=== PATIENT | female | born 1960 | race African-American/Black ===

== ENCOUNTER 2017-02-28 16:30 | Emergency (ER) | payer SELFPAY ==
[2017-02-28] MEDS ORDERED: ALBUTEROL SO4 2.5/IPRATROPIUM 0.5 INH SOL 3 ML VIAL.NEB. NEB ONE ×5 (16:49→18:39)
--- NOTE | 2017-02-28 16:49 | PDOC ---
Rapid Medical Evaluation Time Seen by Provider: 02/28/17 16:45 Medical Evaluation: Allergies Allergy/AdvReac Type Severity Reaction Status Date / Time No Known Allergies Allergy Verified 04/26/14 14:19 02/28/17 16:46 I have performed a brief in-person evaluation of this patient. The patient presents with a chief complaint of: Asthma exacerbation since yesterday, not relieved w/ meds at home. Is a smoker. No asthma admissions or intubations Pertinent physical exam findings:Sating 96% on RA w/ HR of 117, BP 144/80 w/ mild wheezing on exam, able to speak in full sentences I have ordered the following:Romulo in triage The patient will proceed to the ED for further evaluation.
[2017-02-28 16:50] VITALS: BP 144/80; PULSE 112; TEMP 97.9; BMI 21.7
[2017-02-28] MEDS ORDERED: predniSONE 20 MG TABLET (UD) PO ONE (17:26)
[2017-02-28] MEDS ORDERED: predniSONE 20 MG TABLET (UD) ONE (17:28)
--- NOTE | 2017-02-28 17:34 | PDOC ---
History of Present Illness - General Chief Complaint: Shortness of Breath Stated Complaint: S.O.B/Asthma Time Seen by Provider: 02/28/17 16:45 History Source: Patient Exam Limitations: No Limitations - History of Present Illness Initial Comments: 02/28/17 17:28 56 yr female with c/o wheezing cough short of breath ran out of her albuterol at home. Pt is a smoker denies chest pain or fever. Pt has no history of intubations or hospitalizations. Pt has no other medical history. 02/28/17 17:29 Past History - Past Medical History Allergies/Adverse Reactions: Allergies Allergy/AdvReac Type Severity Reaction Status Date / Time No Known Allergies Allergy Verified 02/28/17 16:50 Home Medications: Ambulatory Orders Albuterol 2.5/Ipratropium 0.5 [Duoneb -] 1 neb NEB Q4H #30 vial 02/28/17 Albuterol Sulfate Inhaler - [Ventolin HFA Inhaler -] 1 - 2 inh PO Q4H #1 inhaler 02/28/17 Azithromycin [Zithromax 250mg Tablets -] 250 mg PO UTDICT #6 tab 02/28/17 Prednisone [Deltasone -] 40 mg PO DAILY #10 tablet 02/28/17 Asthma: Yes COPD: No Other medical history: Aneurysm - Suicide/Smoking/Psychosocial Hx Smoking Status: Yes Smoking History: Current every day smoker Number of Cigarettes Smoked Daily: 20 Information on smoking cessation initiated: Yes 'Breaking Loose' booklet given: 02/28/17 Hx Alcohol Use: No Drug/Substance Use Hx: No Substance Use Type: None Review of Systems - Review of Systems Able to Perform ROS?: Yes Is the patient limited Slovenian proficient: No Constitutional: No: Symptoms Reported HEENTM: Yes: Symptoms Reported Respiratory: Yes: Cough, Wheezing Cardiac (ROS): No: Symptoms Reported ABD/GI: No: Symptoms Reported : No: Symptoms Reported Musculoskeletal: No: Symptoms Reported Integumentary: No: Symptoms Reported Neurological: No: Symptoms reported *Physical Exam - Vital Signs Last Vital Signs Temp Pulse Resp BP Pulse Ox 97.9 F 112 H 19 144/80 97 02/28/17 16:48 02/28/17 16:48 02/28/17 16:48 02/28/17 16:48 02/28/17 16:48 - Physical Exam General Appearance: Yes: Nourished, Appropriately Dressed HEENT: positive: EOMI, CESILIA, TMs Normal, Pharynx Normal Neck: positive: Supple. negative: Tender Respiratory/Chest: positive: Decreased Breath Sounds, Wheezing Cardiovascular: positive: Regular Rhythm, Regular Rate Gastrointestinal/Abdominal: positive: Normal Bowel Sounds, Soft Musculoskeletal: positive: Normal Inspection Extremity: positive: Normal Capillary Refill, Normal Inspection, Normal Range of Motion Integumentary: positive: Normal Color, Dry, Warm Neurologic: positive: Fully Oriented, Alert, Normal Mood/Affect, Normal Response , Motor Strength 08/16 ED Treatment Course - Medications Given in the ED: ED Medications Discontinued Medications Generic Name Dose Route Start Last Admin Trade Name Freq PRN Reason Stop Dose Admin Albuterol/Ipratropium 1 amp 02/28/17 16:49 02/28/17 16:57 Duoneb - NEB 02/28/17 16:50 1 amp ONCE ONE Administration Medical Decision Making - Medical Decision Making 02/28/17 17:31 cc: cough wheezing SOB speaking full sentences no acute distress duoneb given in triage, pt feels some relief when she presented to [facility] will give second duoneb prednisone and re-evaluate 02/28/17 18:33 cxr is negative for infiltrates or active disease pt feels better after third neb is asking to go eat in the diner will dc home strict followup given to daughter and the pt all questions asked and answered *DC/Admit/Observation/Transfer Diagnosis at time of Disposition: Asthma exacerbation Qualifiers: Asthma severity: mild Asthma persistence: intermittent Qualified Code(s): J45.21 - Mild intermittent asthma with (acute) exacerbation Upper respiratory infection Qualifiers: URI type: unspecified URI Qualified Code(s): J06.9 - Acute upper respiratory infection, unspecified - Discharge Dispostion Disposition: HOME Condition at time of disposition: Improved - Prescriptions Prescriptions: Albuterol 2.5/Ipratropium 0.5 [Duoneb -] 1 neb NEB Q4H #30 vial Albuterol Sulfate Inhaler - [Ventolin HFA Inhaler -] 1 - 2 inh PO Q4H #1 inhaler Azithromycin [Zithromax 250mg Tablets -] 250 mg PO UTDICT #6 tab Prednisone [Deltasone -] 40 mg PO DAILY #10 tablet - Referrals Referrals: George Goodman MD [Staff Physician] - - Patient Instructions Additional Instructions: drink pleanty of fluids to stay hydrated take the medication as prescribed avoid cigarette smoking as this will make symptoms worse and you will remain sick for longer follow with the doctor below for primary care return to ER for any worsening symptoms - Post Discharge Activity
== END 2017-02-28 18:39 | disposition home or self-care (01) ==
LOC: JERFT 16:30
PROC: 3E0F7GC Introduction of Other Therapeutic Substance into Respiratory Tract, Via Natural or Artificial Opening (ICD-10-PCS; principal; 2017-02-28)
PROC: 3E0F7GC Introduction of Other Therapeutic Substance into Respiratory Tract, Via Natural or Artificial Opening (ICD-10-PCS; 2017-02-28)
PROC: 3E0F7GC Introduction of Other Therapeutic Substance into Respiratory Tract, Via Natural or Artificial Opening (ICD-10-PCS; 2017-02-28)
DX: J45.21 Mild intermittent asthma with (acute) exacerbation (principal); J06.9 Acute upper respiratory infection, unspecified
CPT/HCPCS: 71020-TC; 99281-25